=== PATIENT | male | born 2000 | race Caucasian/White ===

== ENCOUNTER 2022-05-13 18:32 | Emergency (ER) | payer OTHER, SELFPAY ==
[2022-05-13 18:47] VITALS: BP 105/55; PULSE 65; RESP 18; TEMP 36.6; O2SAT 99
--- NOTE | 2022-05-14 02:22 | ED_ITS ---
HPI - Back Pain/Injury General Chief Complaint: Back Pain/Injury Stated Complaint: back pain Time Seen by Provider: 05/14/22 01:25 Source: patient History of Present Illness HPI Narrative: Patient is a healthy 22-year-old male who presents with sudden-onset right-sided back pain. He says he twisted it and felt sudden pain down his leg. This has happened to him previously. He took Tylenol earlier which did seem to help. No changes in bowel or bladder habits. He process he previously got muscle relaxers as well. Related Data Previous Rx's Medication Instructions Recorded cyclobenzaprine 5 mg tablet 5 mg PO TID PRN muscle spasm #10 05/14/22 tabs Allergies Allergy/AdvReac Type Severity Reaction Status Date / Time No Known Drug Allergies Allergy Verified 05/13/22 18:48 Review of Systems Review of Systems Narrative: GENERAL: Denies chills,fever HEENT: Denies throat pain RESPIRATORY: Denies dyspnea, cough, wheezing CARDIOVASCULAR: Denies chest pain, palpitations GASTROINTESTINAL: Denies nausea, vomiting MUSCULOSKELETAL: see HPI SKIN: No rash, no laceration, no pruritus NEUROLOGIC: Denies weakness, dizziness, headache, numbness 8 point review of systems is negative except for those stated above and HPI Exam Initial Vital Signs Initial Vital Signs: Vital Signs Temperature 98 F 05/13/22 18:47 Pulse Rate 65 05/13/22 18:47 Respiratory Rate 18 05/13/22 18:47 Blood Pressure 105/55 L 05/13/22 18:47 Pulse Oximetry 99 05/13/22 18:47 Oxygen Delivery Method 05/13/22 18:47 GENERAL: Well-appearing, well-nourished and in no acute distress. CARDIOVASCULAR: peripheral pulses in tact, cap refill <2 sec RESPIRATORY: No respiratory distress, speaks in full sentences without difficulty BACK: No vertebral tenderness right lower lumbar pain EXTREMITIES: Normal range of motion, no clubbing or edema. Neurovascularly intact NEUROLOGICAL: Cranial nerves II through XII grossly intact. Normal gait and speech. SKIN: Warm, dry, no petechiae, no rashes or lesions. Course Orders Ordered: Discontinued Medications Cyclobenzaprine HCl (Cyclobenzaprine 10 Mg Prepack) 1 bottle [facility] [place] [facility] [place] Stop: 05/14/22 02:21 Last Admin: 05/14/22 02:33 Dose: 1 bottle Documented By: LINO Ketorolac Tromethamine (Ketorolac 30 Mg/Ml Vial) 30 mg IM NOW ONE Stop: 05/14/22 02:21 Last Admin: 05/14/22 02:34 Dose: 30 mg Documented By: LINO Vital Signs Vital signs: Vital Signs - 8 hr 05/14/22 02:41 Pulse Rate 75 Respiratory Rate 16 Blood Pressure 132/75 Pulse Oximetry 100 Oxygen Delivery Method Room Air MDM - Back Pain/Injury MDM Narrative Medical decision making narrative: Patient signs symptoms consistent with sciatica. He does have some lumbar pain. He previously had an injury like this in the past. Is given Flexeril that time and it seemed to work well. Discharge Plan Departure Patient Disposition: Home Clinical Impression: Acute back pain with sciatica Instructions: DI for Back Pain With Sciatica Activity Restrictions/Additional Instructions: *You have been diagnosed with back pain with sciatica *What to do: At this time I recommend heating pad light activity no strenuous activity until symptoms improve. He may require physical therapy if symptoms do not improve *Continue to take medications as directed Ibuprofen 600 mg every 6 hours if needed for [id number] pain Tylenol 1000 mg every 6 hours if needed for lhaa-dd-[id number] pain Flexeril 5-10 mg every 8 hours if needed for muscle spasm this can cause drowsiness *Follow up with your primary care provider in 2-3 days or call [phone] *Return to ER if you should have increasing pain weakness loss of urine loss of stool or any new, worsening or concerning symptoms Prescriptions: New cyclobenzaprine 5 mg tablet 5 mg PO TID PRN (Reason: muscle spasm) Qty: 10 0RF Referrals: [facility] [Provider Group] Visit Report Forms: Patient Portal/API
[2022-05-14] MEDS: CYCLOBENZAPRINE 10 MG PREPACK 1 BOTTLE MISC (02:33)
[2022-05-14] MEDS: KETOROLAC 30 MG/ML VIAL IM (02:34)
[2022-05-14 02:41] VITALS: BP 132/75; PULSE 75; RESP 16; O2SAT 100
== END 2022-05-14 02:42 | disposition home or self-care (01) ==
PROVIDERS: Emergency Provider Emergency Medicine
DX: M54.41 Lumbago with sciatica, right side (principal)
CPT/HCPCS: 96372; 99283; J1885